=== PATIENT | female | born 1995 | race Hispanic/Latino ===

== ENCOUNTER 2022-08-05 17:00 | Emergency (ER) | payer BC, OTHER ==
[~2022-08-05] VITALS: Ht 147.3 cm; Wt 86.2 kg
[2022-08-05] MEDS ORDERED: LIDOCAINE HCL 1% 20 ML VIAL INJ SCH (19:30)
[2022-08-05] MEDS ORDERED: CEPH500B PO (21:08)
[2022-08-05 21:15] VITALS: BP 132/89
== END 2022-08-05 21:17 | disposition home or self-care (01) ==
LOC: EDH 17:00
DX: N75.0 Cyst of Bartholin's gland (principal)
CPT/HCPCS: 56420